=== PATIENT | female | born 1935 | race Caucasian/White ===

== ENCOUNTER 2016-09-10 17:12 | Emergency (ER) | payer OTHER, MEDICARE ==
[~2016-09-10] VITALS: Ht 167.6 cm; Wt 97.3 kg
[~2016-09-10 17:12] MED LIST: ADVAIR 500/501 DISK IH; ALEVE220 MG PO; COUMADIN2 MG PO; COZAAR100 MG PO; DAILY VALUE1 EACH PO; FUROSEMIDE80 MG PO; KLOR-CON M2020 MEQ PO; LASIX40 MG PO; LO-DOSE ASPIRIN81 M1 PO; LOPRESSOR25 MG PO; METOLAZONE2.5 MG PO; METOPROLOL TART50 MG PO; PROAIR RESPICL90 MCG IH; PROTONIX40 MG PO; VITAMIN C1000 MG PO; VITAMIN D31000 UNI2 PO; WARFARIN SODIUM5 MG PO
[2016-09-10 17:15] VITALS: BP 121/82
[2016-09-10 17:48] LABS: MCH 32.5 PG (29.0-34.0); MCHC 32.9 G/DL (30.0-36.0); MCV 98.7 FL (83-99); MEAN PLAT.VOLUME 9.8 uM^3 (9.5-12.4); PLATELET COUNT 232 K/uL (156-360); RBC DIS.WIDTH-SD 48.9 % (39-53); RED BLOOD COUNT 3.85 M/uL (3.80-5.20); WHITE BLOOD COUNT 7.4 K/uL (4.1-10.2)
[2016-09-10 18:10] LABS: CHLORIDE 100 mEq/L (99-109); POTASSIUM 3.1 mEq/L (3.7-5.4); SODIUM 141 mEq/L (136-147)
[2016-09-10 18:12] LABS: GLUCOSE 100 mg/dL (70-99)
[2016-09-10 18:13] LABS: ANION GAP 11 MEQ/L (2-14)
[2016-09-10 18:15] LABS: TROP-I INTERPRETATION NEGATIVE; TROPONIN-I 0.03 ng/mL (0.0-0.30)
[2016-09-10 18:16] LABS: GFR ESTIMATE (CALCULATED) > 59 mL/min/
[2016-09-10 18:17] LABS: UREA NITROGEN (BUN) 20 mg/dL (9-23)
== END 2016-09-10 18:55 | disposition left against medical advice (07) ==
LOC: EME 17:12
DX: R94.31 Abnormal electrocardiogram [ECG] [EKG] (principal); Z53.21 Procedure and treatment not carried out due to patient leaving prior to being seen by health care provider; R00.0 Tachycardia, unspecified; I10 Essential (primary) hypertension; I48.91 Unspecified atrial fibrillation
CPT/HCPCS: 71020; 80048; 84484; 85027; 93005

== ENCOUNTER 2016-10-15 12:53 | Day surgery (SDC) | payer OTHER, MEDICARE ==
[~2016-10-15] VITALS: Ht 167.6 cm; Wt 95.0 kg
[~2016-10-15 12:53] MED LIST changes: +ELIQUIS5 MG PO
== END 2016-10-15 16:04 | disposition home or self-care (01) ==
LOC: CATH 12:53
PROC: 5A2204Z Restoration of Cardiac Rhythm, Single (ICD-10-PCS; principal; 2016-10-15)
DX: I48.0 Paroxysmal atrial fibrillation (principal); I48.1 Persistent atrial fibrillation; Z79.01 Long term (current) use of anticoagulants; I11.0 Hypertensive heart disease with heart failure; I50.9 Heart failure, unspecified; I34.8 Other nonrheumatic mitral valve disorders; I27.2 Other secondary pulmonary hypertension